=== PATIENT | male | born 1970 | race Two or more races ===

== ENCOUNTER 2017-06-21 14:57 | Emergency (ER) | payer OTHER ==
[~2017-06-21] VITALS: Ht 162.6 cm; Wt 69.9 kg
[2017-06-21] MEDS ORDERED: Tetanus/Diptheria/Pertussis Vaccine 0.5ml Syr IM ONE (15:30)
[2017-06-21] MEDS ORDERED: Norco 5mg/325mg tab ORAL ONE (15:30)
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
[2017-06-21 15:35] VITALS: BP 142/76
[2017-06-21] MEDS ORDERED: IBUPROFEN600 MG ORAL (15:46)
[2017-06-21] MEDS ORDERED: SILVADENE20 GM TP (15:46)
[2017-06-21] MEDS ORDERED: NORCO 5-325 TA1 EACH ORAL (15:46)
[2017-06-21 16:12] VITALS: BP 142/76
== END 2017-06-21 16:15 | disposition home or self-care (01) ==
LOC: EMR 15:20
DX: T22.211A Burn of second degree of right forearm, initial encounter (principal); T31.0 Burns involving less than 10% of body surface; X10.2XXA Contact with fats and cooking oils, initial encounter; Y93.G3 Activity, cooking and baking; Y92.511 Restaurant or cafe as the place of occurrence of the external cause; Y99.0 Civilian activity done for income or pay; Z23 Encounter for immunization
CPT/HCPCS: 90471; 90715; 99284